=== PATIENT | female | born 2000 | race Caucasian/White ===

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

== ENCOUNTER 2019-10-15 00:01 | Inpatient (IN) | payer BC ==
[~2019-10-15] VITALS: Ht 165.1 cm; Wt 92.0 kg
[2019-10-15] MEDS ORDERED: PRENATAL VITAM1 EAC6 PO (06:21)
--- NOTE | 2019-10-15 14:31 | PR ---
[facility] [address] [facility] [place], [place] [address] Signed Progress Notes IP Datetime Report Generated by CPRogerio: 10/15/2019 14:31 PROGRESS NOTES: [id number] Impression: Slow Progression of Labor Procedures: Intrauterine Pressure Catheter; Scalp Electrode Plan: Continue present management Informed Consent Obtain: Vaginal Delivery; Induction of Labor; Risks, Benefits and Alternatives Discussed VITAL SIGNS: [id number] Vital Signs: Reviewed; Within Normal Limits EXAM: [id number] Dilatation: 2.5 Effacement: 80 Station: -2 Uterine Contractions: q 1 to 2 min MEMBRANES: [id number] Membrane Status: Intact Comments: Very slow progress. Will place IUPC and FSE and evaluate need for augmentation. status very reassuring currently. Fetus A: [id number] FHR Baseline: 130 Variability: Moderate 6-25bpm Accelerations: 15X15 Decelerations: None FHR Category: Category I Presentation: Vertex Comments on Fetus A: No evidence of metabolic acidosis Fetus B: [id number] Signing Physician: Theodora Goddard MD Copies: ~ *Electronically Signed* 10/15/19 1431 THEODORA GODDARD MD PATIENT NAME: ART NORRIS BORDY PROGRESS NOTE DATE OF : [birth year] PHYSICIAN: THEODORA GODDARD MD RPT #: [id number] REPORT IS CONFIDENTIAL AND NOT TO BE RELEASED WITHOUT AUTHORIZATION
--- NOTE | 2019-10-15 18:31 | PR ---
[facility] [address] [facility] [place] [address] Signed Progress Notes IP Datetime Report Generated by TOLU: 10/15/2019 18:31 PROGRESS NOTES: [id number] Impression: Slow Progression of Labor Procedures: Sterile Vag Exam Plan: Continue present management Informed Consent Obtain: Vaginal Delivery; Induction of Labor; Risks, Benefits and Alternatives Discussed VITAL SIGNS: [id number] Vital Signs: Reviewed; Within Normal Limits EXAM: [id number] Dilatation: 3.0 Effacement: 90 Station: -2 Uterine Contractions: q 2 to 4 min, poor quality MEMBRANES: [id number] Membrane Status: Intact Comments: Comfortable after epidural. Progressing very slowly. Her contractions are inadequate by IUPC and by exam. Will continue to increase pit as needed. Fetus A: [id number] FHR Baseline: 110 Variability: Moderate 6-25bpm Accelerations: 15X15 Decelerations: None FHR Category: Category I Presentation: Vertex Comments on Fetus A: No evidence of metabolic acidosis Fetus B: [id number] Signing Physician: Theodora Goddard MD Copies: ~ *Electronically Signed* 10/15/19 183 THEODORA GODDARD MD PATIENT NAME: ART NORRIS PROGRESS NOTE DATE OF : [birth year] PHYSICIAN: THEODORA GODDARD MD RPT #: [id number] REPORT IS CONFIDENTIAL AND NOT TO BE RELEASED WITHOUT AUTHORIZATION
--- NOTE | 2019-10-17 08:58 | PR ---
[facility] [address] [facility] [place], [place] [address] Signed PP Progress Notes Datetime Report Generated by CPRogerio: 10/17/2019 08:58 SUBJECTIVE: [id number] Pain: Within normal limits Vital Signs: [id number] Vital Signs: Reviewed; Within Normal Limits EXAM: [id number] Cardiovascular: Not Done Respiratory: Not Done Abdomen/Uterus: Abnormal Lochia: Normal Vulva/Perineum: Not Done Breasts: Not Done CVA Tenderness: Not Done Extremities: Normal Incision: Not Applicable Progress: Normal Exam Comments: Fundus firm, NT @ U-1. H/H 9.5/27.5, WBC 13.3, plat 189k IMPRESSION/PLAN/PROCEDURES: [id number] Impression: Normal progression Plan: Discharge Procedures: Rhogam Progress Notes: Doing well. She is ready for D/C. Signing Physician: Theodora Goddard MD Copies: ~ *Electronically Signed* 10/17/19 0858 THEODORA GODDARD MD PATIENT NAME: ART NORRIS BRODY PROGRESS NOTE DATE OF : [birth year] PHYSICIAN: THEODORA GODDARD MD RPT #: [id number] REPORT IS CONFIDENTIAL AND NOT TO BE RELEASED WITHOUT AUTHORIZATION
== END 2019-10-17 11:40 | disposition home or self-care (01) | DRG 768 ==
LOC: FBC 00:01
PROVIDERS: ADMIT Obstetrics & Gynecology
PROC: 10E0XZZ Delivery of Products of Conception, External Approach (ICD-10-PCS; principal; 2019-10-15)
PROC: 0UQG0ZZ Repair Vagina, Open Approach (ICD-10-PCS; 2019-10-15)
PROC: 3E0P7VZ Introduction of Hormone into Female Reproductive, Via Natural or Artificial Opening (ICD-10-PCS; 2019-10-15)
PROC: 10907ZC Drainage of Amniotic Fluid, Therapeutic from Products of Conception, Via Natural or Artificial Opening (ICD-10-PCS; 2019-10-15)
PROC: 10H07YZ Insertion of Other Device into Products of Conception, Via Natural or Artificial Opening (ICD-10-PCS; 2019-10-15)
PROC: 00HU33Z Insertion of Infusion Device into Spinal Canal, Percutaneous Approach (ICD-10-PCS; 2019-10-15)
PROC: 3E0R3BZ Introduction of Anesthetic Agent into Spinal Canal, Percutaneous Approach (ICD-10-PCS; 2019-10-15)
DX: O13.4 Gestational [pregnancy-induced] hypertension without significant proteinuria, complicating childbirth (principal); Z37.0 Single live birth; G40.89 Other seizures; O99.354 Diseases of the nervous system complicating childbirth; Z3A.39 39 weeks gestation of pregnancy; O63.9 Long labor, unspecified; O75.89 Other specified complications of labor and delivery; O71.4 Obstetric high vaginal laceration alone; O99.89 Other specified diseases and conditions complicating pregnancy, childbirth and the puerperium; M42.00 Juvenile osteochondrosis of spine, site unspecified
CPT/HCPCS: 36415; 82565; 83030; 84450; 84520; 84550; 85025; 85027; 86850; 86900; 86901; A9270; J1644; J2590; J2790; J2795; J3010

== ENCOUNTER 2022-12-20 12:00 | Emergency (ER) | payer BC ==
[~2022-12-20] VITALS: Ht 165.1 cm; Wt 74.4 kg
[~2022-12-20 12:00] MED LIST changes: +PRENATAL VITAM1 EAC6 PO
--- OUTSIDE RECORDS SUMMARY | 2022-12-20 13:01 | XMS ---
PreManage Notification: ART NORRIS Security [employer] Events No recent Security Events currently on file CRITERIA MET - [facility] - 2 Visits in 30 Days - [facility] - 3 Facilities in 90 Days CARE PROVIDERS NINFA SAENZ Current PHONE: Unknown Mike has no Care Guidelines for this patient. Courtney. VISIT COUNT (12 MO.) 2 [facility] 1 Kendra Nelson 1 [facility] TOTAL 4 NOTE: Visits indicate total known visits. ED/UCC VISIT TRACKING (12 MO.) 12/20/2022 12:02 [facility] TYPE: Emergency COMPLAINT: - L EAR PAIN, DIZZY, SOB 12/13/2022 00:10 [facility] [place] TYPE: Emergency DIAGNOSES: - Acute suppurative otitis media without spontaneous rupture of ear drum, left ear - EAR PAIN 12/11/2022 11:48 Kendra MARAVILLA TYPE: Emergency COMPLAINT: - RT HAND FINJER INJURY 09/25/2022 19:16 [facility] [place] TYPE: Emergency DIAGNOSES: - Acute tonsillitis, unspecified - Acute upper respiratory infection, unspecified - DIFFICULTY BREATHING WEAKNESS INPATIENT VISIT TRACKING (12 MO.) No inpatient visits to display in this time frame [email or web address]
[2022-12-20] MEDS ORDERED: MUCUS RELIEF400 MG PO (18:13)
[2022-12-20] MEDS ORDERED: LORATADINE10 MG PO (18:13)
[2022-12-20 18:28] VITALS: BP 121/77
== END 2022-12-20 18:29 | disposition home or self-care (01) ==
LOC: ED 12:00
DX: H74.8X2 Other specified disorders of left middle ear and mastoid (principal)
CPT/HCPCS: 99282